=== PATIENT | female | born 1960 | race Caucasian/White ===

== ENCOUNTER → 2017-07-31 | Outpatient (CLI) | payer OTHER ==
[~2017-07-31] VITALS: Ht 172.7 cm; Wt 55.0 kg
[~2017-07-31] MED LIST: BENZOCAINE 20% ORAL SPR 60 ML CAN OROPHARYNG ONE; CALC1TAB12 PO; REST30CA PO; no current meds
[2017-07-31 07:45] VITALS: BP 128/64; PULSE 52; RESP 20; TEMP 98; O2SAT 100
== END ==
LOC: HSDC 07:13
PROVIDERS: ATTEND Internal Medicine Gastroenterology
DX: K44.9 Diaphragmatic hernia without obstruction or gangrene (principal); K21.9 Gastro-esophageal reflux disease without esophagitis
CPT/HCPCS: 91010

== ENCOUNTER 2017-08-09 15:37 | Emergency (ER) | payer OTHER ==
[~2017-08-09] VITALS: Ht 172.7 cm; Wt 75.0 kg
[~2017-08-09 15:37] MED LIST changes: -BENZOCAINE 20% ORAL SPR 60 ML CAN OROPHARYNG ONE
[2017-08-09] MEDS ORDERED: IOHEXOL 180 MG/ML 20 ML VIAL (for RAD DIAG) IVCONTRAST ONE (15:38)
[2017-08-09 15:43] VITALS: BP 120/69; PULSE 63; RESP 18; TEMP 98; O2SAT 100
[2017-08-09] MEDS ORDERED: SODIUM CHLORIDE 0.9% FLUSH 10 ML FLUSH IV FLUSH PRN (16:00)
[2017-08-09] MEDS ORDERED: SODIUM CHLOR 0.9% 1000 ML INJ 1,000 ML IV ONE (16:15)
[2017-08-09] MEDS ORDERED: ONDANSETRON HCL 4 MG/2 ML VIAL IV ONE (16:15)
[2017-08-09] MEDS ORDERED: MORPHINE SULFATE 4 MG/ML INJ IV PUSH ONE (16:15)
[2017-08-09 16:29] LABS: AUTOMATED NEUTROPHIL # 10.5 TH/MM3 (1.8-7.7); BASOPHIL % 0.2 % (0.0-2.0); HEMATOCRIT 43.8 % (35.0-46.0); HEMOGLOBIN 14.9 GM/DL (11.6-15.3); LYMPHOCYTE # 0.7 TH/MM3 (1.0-4.8); MEAN CORPUSCULAR HEMOGLOBIN 29.9 PG (27.0-34.0); MEAN PLATELET VOLUME 10.1 FL (7.0-11.0); MONO % 3.4 % (0.0-8.0); MONOCYTE # 0.4 TH/MM3 (0-0.9); NEUT % 90.4 % (16.0-70.0); PLATELET COUNT 208 TH/MM3 (150-450); RED BLOOD COUNT 4.98 MIL/MM3 (4.00-5.30); RED CELL DISTRIBUTION WIDTH 13.6 % (11.6-17.2); WHITE BLOOD COUNT 11.6 TH/MM3 (4.0-11.0)
[2017-08-09 16:39] LABS: ALBUMIN 3.8 GM/DL (3.4-5.0); ALT (GPT) 15 U/L (10-53); AST (GOT) 20 U/L (15-37); BICARBONATE 23.4 MEQ/L (21.0-32.0); BLOOD UREA NITROGEN 20 MG/DL (7-18); CALCIUM 9.1 MG/DL (8.5-10.1); CHLORIDE 108 MEQ/L (98-107); CREATININE 0.94 MG/DL (0.50-1.00); GLOMERULAR FILTRATION RATE 61 ML/MIN (>89); GLUCOSE,RANDOM 149 MG/DL (74-106); SODIUM (NA) 141 MEQ/L (136-145)
[2017-08-09 16:40] LABS: ALKALINE PHOSPHATASE 84 U/L (45-117); TOTAL BILIRUBIN ADULT 0.8 MG/DL (0.2-1.0); TOTAL PROTEIN 6.9 GM/DL (6.4-8.2)
--- NOTE | 2017-08-09 17:12 | PD ---
HPI Chief Complaint: Abdominal Pain Time Seen by Provider: 15:57 Travel History International Travel<30 days: No Contact w/Intl Traveler<30days: No Traveled to known affect area: No History of Present Illness HPI Is a 57-year-old woman presents emerged from complaining of lower abdominal pain. States she was feeling well until today when she woke up she started progressively worsening abdominal pain, worse in the lower abdomen. One episode of vomiting. Bowel movement this morning it was a little bit loose. No other vomiting or diarrhea. Pain is gotten progressively worse throughout the day and was excruciating when she got to the emergency department. Only past surgical history of C-sections. She is followed for bad hiatal hernia and reflux symptoms. She has had manometry and other extensive evaluations and it sounds like they are planning on doing some kind of procedure to put a metal ring around the esophageal sphincter to help with the symptoms. She otherwise has been feeling well and healthy prior to this. History Past Medical History Narrative Medical GERD Hiatal hernia Social History Alcohol Use: No Tobacco Use: Yes (e-sig) Allergies-Medications (Allergen,Severity, Reaction): Coded Allergies: No Known Allergies (Unverified Allergy, Unknown, 08/09/17) Reported Meds & Prescriptions Reported Meds & Active Scripts Active Reported Calcium 500 +D (Calcium Carbonate-Cholecalciferol) 500-400 Mg-Unit Tab 1 Tab PO TID Restoril (Temazepam) 30 Mg Cap 30 Mg PO HS [no current meds] Review of Systems Except as stated in HPI: all other systems reviewed are Neg Physical Exam Narrative GENERAL: 57-year-old woman, appears uncomfortable, knees bent, very still. SKIN: Focused skin assessment warm/dry. HEAD: Atraumatic. Normocephalic. EYES: Pupils equal and round. No scleral icterus. No injection or drainage. ENT: No nasal bleeding or discharge. Mucous membranes pink and moist. NECK: Trachea midline. No JVD. CARDIOVASCULAR: Regular rate and rhythm. No murmur appreciated. RESPIRATORY: No accessory muscle use. Clear to auscultation. Breath sounds equal bilaterally. GASTROINTESTINAL: Abdomen is firm and tense, with a lot of voluntary guarding. Possibly early peritonitis. MUSCULOSKELETAL: No obvious deformities. Decreased muscle bulk. NEUROLOGICAL: Awake and alert. No obvious cranial nerve deficits. Motor grossly within normal limits. Normal speech. PSYCHIATRIC: Appropriate mood and affect; insight and judgment normal. Data Data Last Documented VS Vital Signs Date Time Temp Pulse Resp B/P (MAP) Pulse Ox O2 Delivery O2 Flow Rate FiO2 08/09/17 15:43 98.0 63 18 120/69 (86) 100 Orders Orders Complete Blood Count With Diff (08/09/17 15:57) Comprehensive Metabolic Panel (08/09/17 15:57) Lipase (08/09/17 15:57) Urinalysis - C+S If Indicated (08/09/17 15:57) Iv Access Insert/Monitor (08/09/17 15:57) NPO (08/09/17 15:57) Sodium Chloride 0.9% Flush (Ns Flush) (08/09/17 16:00) Sodium Chlor 0.9% 1000 Ml Inj (Ns 1000 M (08/09/17 16:15) Ondansetron Inj (Zofran Inj) (08/09/17 16:15) Morphine Inj (Morphine Inj) (08/09/17 16:15) Ct Abd/Pel W Iv Contrast(Rout) (08/09/17 ) Labs Laboratory Tests Test 08/09/17 16:10 White Blood Count 11.6 TH/MM3 Red Blood Count 4.98 MIL/MM3 Hemoglobin 14.9 GM/DL Hematocrit 43.8 % Mean Corpuscular Volume 88.0 FL Mean Corpuscular Hemoglobin 29.9 PG Mean Corpuscular Hemoglobin Concent 34.0 % Red Cell Distribution Width 13.6 % Platelet Count 208 TH/MM3 Mean Platelet Volume 10.1 FL Neutrophils (%) (Auto) 90.4 % Lymphocytes (%) (Auto) 6.0 % Monocytes (%) (Auto) 3.4 % Eosinophils (%) (Auto) 0.0 % Basophils (%) (Auto) 0.2 % Neutrophils # (Auto) 10.5 TH/MM3 Lymphocytes # (Auto) 0.7 TH/MM3 Monocytes # (Auto) 0.4 TH/MM3 Eosinophils # (Auto) 0.0 TH/MM3 Basophils # (Auto) 0.0 TH/MM3 CBC Comment DIFF FINAL Differential Comment Blood Urea Nitrogen 20 MG/DL Creatinine 0.94 MG/DL Random Glucose 149 MG/DL Total Protein 6.9 GM/DL Albumin 3.8 GM/DL Calcium Level 9.1 MG/DL Alkaline Phosphatase 84 U/L Aspartate Amino Transf (AST/SGOT) 20 U/L Alanine Aminotransferase (ALT/SGPT) 15 U/L Total Bilirubin 0.8 MG/DL Sodium Level 141 MEQ/L Potassium Level 4.0 MEQ/L Chloride Level 108 MEQ/L Carbon Dioxide Level 23.4 MEQ/L Anion Gap 10 MEQ/L Estimat Glomerular Filtration Rate 61 ML/MIN Lipase 219 U/L MDM Medical Decision Making Medical Screen Exam Complete: Yes Emergency Medical Condition: Yes Differential Diagnosis Ruptured viscus, internal hernia, gastritis, pancreatitis, obstruction, other Narrative Course Medical decision making Is a 57-year-old woman presents to the emergency department complaining of severe abdominal pain. Very uncomfortable initially. Somewhat concerning abdominal exam. Much improved after 1 dose of morphine. More comfortable. Will check labs, CT imaging, reassess. Patient was signed out to Dr. Carpenter to follow-up with the results of CT imaging and reassess. Vasu Persaud MD Aug 09, 2017 17:12
--- NOTE | 2017-08-09 17:52 | PD ---
Data Data Last Documented VS Vital Signs Date Time Temp Pulse Resp B/P (MAP) Pulse Ox O2 Delivery O2 Flow Rate FiO2 08/09/17 15:43 98.0 63 18 120/69 (86) 100 Orders Orders Complete Blood Count With Diff (08/09/17 15:57) Comprehensive Metabolic Panel (08/09/17 15:57) Lipase (08/09/17 15:57) Urinalysis - C+S If Indicated (08/09/17 15:57) Iv Access Insert/Monitor (08/09/17 15:57) NPO (08/09/17 15:57) Sodium Chloride 0.9% Flush (Ns Flush) (08/09/17 16:00) Sodium Chlor 0.9% 1000 Ml Inj (Ns 1000 M (08/09/17 16:15) Ondansetron Inj (Zofran Inj) (08/09/17 16:15) Morphine Inj (Morphine Inj) (08/09/17 16:15) Ct Abd/Pel W Iv Contrast(Rout) (08/09/17 ) Iohexol 180 Inj (Omnipaque 180 Inj) (08/09/17 15:38) Ed Discharge Order (08/09/17 19:01) Labs Laboratory Tests Test 08/09/17 16:10 08/09/17 17:30 White Blood Count 11.6 TH/MM3 Red Blood Count 4.98 MIL/MM3 Hemoglobin 14.9 GM/DL Hematocrit 43.8 % Mean Corpuscular Volume 88.0 FL Mean Corpuscular Hemoglobin 29.9 PG Mean Corpuscular Hemoglobin Concent 34.0 % Red Cell Distribution Width 13.6 % Platelet Count 208 TH/MM3 Mean Platelet Volume 10.1 FL Neutrophils (%) (Auto) 90.4 % Lymphocytes (%) (Auto) 6.0 % Monocytes (%) (Auto) 3.4 % Eosinophils (%) (Auto) 0.0 % Basophils (%) (Auto) 0.2 % Neutrophils # (Auto) 10.5 TH/MM3 Lymphocytes # (Auto) 0.7 TH/MM3 Monocytes # (Auto) 0.4 TH/MM3 Eosinophils # (Auto) 0.0 TH/MM3 Basophils # (Auto) 0.0 TH/MM3 CBC Comment DIFF FINAL Differential Comment Blood Urea Nitrogen 20 MG/DL Creatinine 0.94 MG/DL Random Glucose 149 MG/DL Total Protein 6.9 GM/DL Albumin 3.8 GM/DL Calcium Level 9.1 MG/DL Alkaline Phosphatase 84 U/L Aspartate Amino Transf (AST/SGOT) 20 U/L Alanine Aminotransferase (ALT/SGPT) 15 U/L Total Bilirubin 0.8 MG/DL Sodium Level 141 MEQ/L Potassium Level 4.0 MEQ/L Chloride Level 108 MEQ/L Carbon Dioxide Level 23.4 MEQ/L Anion Gap 10 MEQ/L Estimat Glomerular Filtration Rate 61 ML/MIN Lipase 219 U/L Urine Color YELLOW Urine Turbidity CLEAR Urine pH 8.5 Urine Specific [place] 1.024 Urine Protein 100 mg/dL Urine Glucose (UA) NEG mg/dL Urine Ketones 10 mg/dL Urine Occult Blood NEG Urine Nitrite NEG Urine Bilirubin NEG Urine Urobilinogen LESS THAN 2.0 MG/DL Urine Leukocyte Esterase NEG Urine RBC LESS THAN 1 /hpf Urine WBC 1 /hpf Urine Squamous Epithelial Cells 1 /hpf Urine Mucus FEW /lpf Microscopic Urinalysis Comment CULT NOT INDICATED MDM Supervised Visit with BAILEY: No Narrative Course Patient CARE assume from Dr. Persaud @ [id number]. I was asked to follow-up the CAT scan recess the patient disposition her appropriately. Patient's abdomen is minimally tender for me she is just been medicated with morphine. I do not appreciate any peritoneal signs. Her labs do show minimally elevated white blood cell count. CAT scan completely negative according to radiology read Last 24 hours Impressions Abdomen/Pelvis CT 08/09/17 0000 Signed Impressions: Service Date/Time: Wednesday, August 09, 2017 17:37 - CONCLUSION: Normal examination. The appendix originates from the posterior wall of the cecum and extends directly posteriorly. Is not obviously inflamed or thick walled but is fluid-filled. Correlate clinically. The rest of study is unremarkable Vasu Miller MD The patient on reassessment has benign abdomen. I reviewed her images and I think I see a little bit of duodenal wall thickening consistent with a duodenitis. I think it is reasonable to cover her for this. She is feeling much better, states the pain was severe before but is significantly resolved. Interestingly she has a history of hiatal hernia but I do not even see a hiatal hernia on her CAT scan. At this time I think the patient is stable for discharge to follow-up with her surgeon Dr. Cross and she will do so on Saturday. Discussed with her at length return to ED criteria. She is stable for discharge Diagnosis Primary Impression: Epigastric abdominal pain Med/Other Pt SpecificInfo: Prescription(s) given Scripts Metronidazole (Flagyl) 500 Mg Tab 500 MG PO BID for Infection for 7 Days, #14 TAB 0 Refills Prov: Sadiq Carpenter MD 08/09/17 Ciprofloxacin (Cipro) 500 Mg Tab 500 MG PO BID for Infection for 7 Days, #14 TAB 0 Refills Prov: Sadiq Carpenter MD 08/09/17 Ondansetron (Zofran) 4 Mg Tab 4 MG PO Q6HR Y for NAUSEA OR VOMITING, #20 TAB 0 Refills Prov: Sadiq Carpenter MD 08/09/17 Dicyclomine (Bentyl) 10 Mg Cap 10 MG PO TID Y for ABDOMINAL CRAMPING, #20 CAP 0 Refills Prov: Sadiq Carpenter MD 08/09/17 Disposition: 01 DISCHARGE HOME Condition: Stable Sadiq Carpenter MD Aug 09, 2017 17:52
--- NOTE | 2017-08-09 17:54 | RADRPT ---
EXAM DATE/TIME: 08/09/2017 17:37 [facility] COMPARISON: No previous studies available for comparison. INDICATIONS : Lower abdominal pain with nausea and vomiting. IV CONTRAST: 97 cc Omnipaque 350 (iohexol) IV ORAL CONTRAST: No oral contrast ingested. RADIATION DOSE: 4.74 CTDIvol (mGy) MEDICAL HISTORY : Hernia, hiatal. Gastroesophageal reflux disease. SURGICAL HISTORY : section. ENCOUNTER: Initial ACUITY: 1 day PAIN SCALE: 10/10 LOCATION: Bilateral lower quadrant TECHNIQUE: Volumetric scanning of the abdomen and pelvis was performed. Using automated exposure control and ad justment of the mA and/or kV according to patient size, radiation dose was kept as low as reasonably achievable to obtain optimal diagnostic quality images. DICOM format image data is available electro nically for review and comparison. FINDINGS: LOWER LUNGS: The visualized lower lungs are clear. LIVER: Homogeneous density without lesion. There is no dilation of the biliary tree. No calcified gallston es. SPLEEN: Normal size without lesion. PANCREAS: Within normal limits. KIDNEYS: Normal in size and shape. There is no mass, stone or hydronephrosis. ADRENAL GLANDS: Within normal limits. VASCULAR: There is no aortic aneurysm. BOWEL/MESENTERY: The stomach, small bowel, and colon demonstrate no acute abnormality. There is no free intraperitone al air or fluid. I'm mildly concerned about the appendix. The appendix originates on image 59 and ext ends posterior from the cecum. It is fluid-filled but not grossly dilated or thick walled. No obviou s inflammation is identified on the coronal images (image 43) ABDOMINAL WALL: Within normal limits. RETROPERITONEUM: There is no lymphadenopathy. BLADDER: No wall thickening or mass. REPRODUCTIVE: Within normal limits. INGUINAL: There is no lymphadenopathy or hernia. MUSCULOSKELETAL: Within normal limits for patient age. CONCLUSION: Normal examination. The appendix originates from the posterior wall of the cecum and extends directly posteriorly. Is not obviously inflamed or thick walled but is fluid-filled. Correlate clinically. Th e rest of study is unremarkable Vasu Miller MD on August 09, 2017 at 17:50 Board Certified Radiologist. This report was verified electronically.
[2017-08-09 18:14] LABS: BILIRUBIN, URINE NEG (NEG); BLOOD, URINE NEG (NEG); GLUCOSE,URINE NEG (NEG); KETONE, URINE 10 mg/dL (NEG); MUCUS URINE FEW /lpf (OCC); NITRITE,URINE NEG (NEG); PH, URINE 8.5 (5.0-8.5); SQUAMOUS EPITHELIAL CELL URINE 1 /hpf (0-5); URINE COLOR YELLOW (YELLW/STRAW); URINE LEUKOCYTE ESTERASE NEG (NEG)
[2017-08-09] MEDS ORDERED: ZOFR4TAB PO (19:01)
[2017-08-09] MEDS ORDERED: METR-1 PO (19:01)
[2017-08-09] MEDS ORDERED: CIPR-9 PO (19:01)
[2017-08-09] MEDS ORDERED: DICY10 PO (19:01)
[2017-08-10] MEDS ORDERED: REGL10TA5 PO (15:52)
[2017-08-10] MEDS ORDERED: DICY20TA10 PO (15:52)
== END 2017-08-09 19:49 | disposition home or self-care (01) ==
LOC: NEPD 15:37
DX: R10.13 Epigastric pain (principal); Z72.0 Tobacco use
CPT/HCPCS: 74177; 80053; 81001; 83690; 85025; 96361; 96374; 96375; 99284; J2270; J2405; J7030; Q9965

== ENCOUNTER 2017-08-10 13:51 | Emergency (ER) | payer OTHER ==
[~2017-08-10] VITALS: Ht 172.7 cm; Wt 54.5 kg
[~2017-08-10 13:51] MED LIST changes: +CIPR-9 PO; +DICY10 PO; +METR-1 PO; +ZOFR4TAB PO
[2017-08-10 13:54] VITALS: BP 101/54; PULSE 80; RESP 16; TEMP 98; O2SAT 100
[2017-08-10] MEDS ORDERED: SODIUM CHLORIDE 0.9% FLUSH 10 ML FLUSH IV FLUSH PRN (14:15)
[2017-08-10] MEDS ORDERED: METOCLOPRAMIDE HCL 10 MG/2 ML VIAL IV PUSH ONE (14:15)
[2017-08-10 14:17] VITALS: RESP 17; O2SAT 98
--- NOTE | 2017-08-10 14:21 | PD ---
HPI Chief Complaint: Abdominal Pain Time Seen by Provider: 13:58 Travel History International Travel<30 days: No Contact w/Intl Traveler<30days: No Traveled to known affect area: No History of Present Illness HPI 57-year-old female presents emergency department for evaluation of abdominal pain that has been present since yesterday. Patient states that she was here in the emergency department and evaluated was given multiple medications however , says that her pain is persistent and she decided to come in for further evaluation. Says that she was prescribed antibiotics and dicyclomine however is only taken 1 dose this morning. Says she also took Aleve without relief. Says her pain is diffuse described as constant, pressure-like. Her pain is occasionally sharp that lasts for seconds to minutes before resolving spontaneously. No palliative or provocative factors. Pain is nonradiating. Moderate to severe. she denies nausea, vomiting, melena, hematochezia, fever, chills, chest pain, shortness of breath. Says her last bowel movement was yesterday and this was normal. Says that she has had multiple scans and outpatient which include a HIDA scan, abdominal CT yesterday, swallowing study, gastric emptying study. She has a history of gastric reflux, hiatal hernia, esophageal spasm, thyroid nodule and a "cyst in the uterus". She follows Dr. Cross on for an appointment. She has an appoint with her primary care physician on Saturday. PFSH Past Medical History Cancer: No Cardiovascular Problems: No Diabetes: No Diminished Hearing: No Endocrine: No Gastrointestinal Disorders: Yes GERD: Yes Genitourinary: No Hepatitis: No Hiatal Hernia: Yes Immune Disorder: No Musculoskeletal: No Neurologic: No Psychiatric: No Reproductive: No Respiratory: No Thyroid Disease: No Tetanus Vaccination: > 5 Years Influenza Vaccination: No ?: Not Menopausal: Yes : 2 Para: 1 Past Surgical History Abdominal Surgery: No Cardiac Surgery: No Section: Yes (x 1) Ear Surgery: No Endocrine Surgery: No Eye Surgery: No Genitourinary Surgery: No Gynecologic Surgery: No Joint Replacement: No Oral Surgery: No Pacemaker: No Thoracic Surgery: No Other Surgery: Yes Social History Alcohol Use: No Tobacco Use: Yes (e-sig) Substance Use: No Allergies-Medications (Allergen,Severity, Reaction): Coded Allergies: No Known Allergies (Verified Allergy, Unknown, 08/10/17) Reported Meds & Prescriptions Reported Meds & Active Scripts Active Reglan (Metoclopramide HCl) 10 Mg Tab 10 Mg PO QID Dicyclomine (Dicyclomine HCl) 20 Mg Tab 20 Mg PO TID 7 Days Flagyl (Metronidazole) 500 Mg Tab 500 Mg PO BID 7 Days Cipro (Ciprofloxacin HCl) 500 Mg Tab 500 Mg PO BID 7 Days Zofran (Ondansetron HCl) 4 Mg Tab 4 Mg PO Q6HR PRN Bentyl (Dicyclomine HCl) 10 Mg Cap 10 Mg PO TID PRN Reported Calcium 500 +D (Calcium Carbonate-Cholecalciferol) 500-400 Mg-Unit Tab 1 Tab PO TID Restoril (Temazepam) 30 Mg Cap 30 Mg PO HS Review of Systems Except as stated in HPI: all other systems reviewed are Neg Physical Exam Narrative GENERAL: Well-developed well-nourished no apparent distress SKIN: Focused skin assessment warm/dry. HEAD: Atraumatic. Normocephalic. EYES: Pupils equal and round. No scleral icterus. No injection or drainage. ENT: No nasal bleeding or discharge. Mucous membranes pink and moist. NECK: Trachea midline. No JVD. CARDIOVASCULAR: Regular rate and rhythm. No murmur appreciated. RESPIRATORY: No accessory muscle use. Clear to auscultation. Breath sounds equal bilaterally. GASTROINTESTINAL: Abdomen with voluntary guarding, no rebound tenderness, no masses or organomegaly. MUSCULOSKELETAL: No obvious deformities. No clubbing. No cyanosis. No edema. NEUROLOGICAL: Awake and alert. No obvious cranial nerve deficits. Motor grossly within normal limits. Normal speech. PSYCHIATRIC: Appropriate mood and affect; insight and judgment normal. Data Data Last Documented VS Vital Signs Date Time Temp Pulse Resp B/P (MAP) Pulse Ox O2 Delivery O2 Flow Rate FiO2 08/10/17 16:15 97.8 16 67 128/76 (93) 98 08/10/17 15:30 Room Air Orders Orders Complete Blood Count With Diff (08/10/17 14:14) Comprehensive Metabolic Panel (08/10/17 14:14) Lipase (08/10/17 14:14) Prothrombin Time / Inr (Pt) (08/10/17 14:14) Act Partial Throm Time (Ptt) (08/10/17 14:14) Urinalysis - C+S If Indicated (08/10/17 14:14) Iv Access Insert/Monitor (08/10/17 14:14) Ecg Monitoring (08/10/17 14:14) Oximetry (08/10/17 14:14) Sodium Chloride 0.9% Flush (Ns Flush) (08/10/17 14:15) Metoclopramide Inj (Reglan Inj) (08/10/17 14:15) Ed Discharge Order (08/10/17 15:56) Labs Laboratory Tests Test 08/10/17 14:15 White Blood Count 9.9 TH/MM3 Red Blood Count 4.08 MIL/MM3 Hemoglobin 12.5 GM/DL Hematocrit 36.6 % Mean Corpuscular Volume 89.8 FL Mean Corpuscular Hemoglobin 30.6 PG Mean Corpuscular Hemoglobin Concent 34.1 % Red Cell Distribution Width 13.3 % Platelet Count 156 TH/MM3 Mean Platelet Volume 10.4 FL Neutrophils (%) (Auto) 86.7 % Lymphocytes (%) (Auto) 10.1 % Monocytes (%) (Auto) 2.9 % Eosinophils (%) (Auto) 0.2 % Basophils (%) (Auto) 0.1 % Neutrophils # (Auto) 8.6 TH/MM3 Lymphocytes # (Auto) 1.0 TH/MM3 Monocytes # (Auto) 0.3 TH/MM3 Eosinophils # (Auto) 0.0 TH/MM3 Basophils # (Auto) 0.0 TH/MM3 CBC Comment DIFF FINAL Differential Comment Prothrombin Time 11.7 SEC Prothromb Time International Ratio 1.2 RATIO Activated Partial Thromboplast Time 26.9 SEC Urine Color YELLOW Urine Turbidity CLEAR Urine pH 5.5 Urine Specific [place] 1.020 Urine Protein TRACE mg/dL Urine Glucose (UA) NEG mg/dL Urine Ketones NEG mg/dL Urine Occult Blood NEG Urine Nitrite NEG Urine Bilirubin NEG Urine Urobilinogen 2.0 MG/DL Urine Leukocyte Esterase NEG Urine RBC LESS THAN 1 /hpf Urine WBC 2 /hpf Urine Squamous Epithelial Cells 2 /hpf Urine Hyaline Casts 2 /lpf Urine Mucus FEW /lpf Microscopic Urinalysis Comment CULT NOT INDICATED Blood Urea Nitrogen 19 MG/DL Creatinine 0.79 MG/DL Random Glucose 96 MG/DL Total Protein 6.2 GM/DL Albumin 3.4 GM/DL Calcium Level 8.3 MG/DL Alkaline Phosphatase 68 U/L Aspartate Amino Transf (AST/SGOT) 18 U/L Alanine Aminotransferase (ALT/SGPT) 13 U/L Total Bilirubin 0.8 MG/DL Sodium Level 144 MEQ/L Potassium Level 3.6 MEQ/L Chloride Level 109 MEQ/L Carbon Dioxide Level 27.6 MEQ/L Anion Gap 7 MEQ/L Estimat Glomerular Filtration Rate 75 ML/MIN Lipase 182 U/L MDM Medical Decision Making Medical Screen Exam Complete: Yes Emergency Medical Condition: Yes Differential Diagnosis Gastroparesis, idiopathic abdominal pain, gastritis, duodenitis Narrative Course 57-year-old female presents emergency department for evaluation of abdominal pain that has been present since yesterday. Patient states that she was here in the emergency department and evaluated was given multiple medications however , says that her pain is persistent and she decided to come in for further evaluation. Says that she was prescribed antibiotics and dicyclomine however is only taken 1 dose this morning. Says she also took Aleve without relief. Says her pain is diffuse described as constant, pressure-like. Her pain is occasionally sharp that lasts for seconds to minutes before resolving spontaneously. No palliative or provocative factors. Pain is nonradiating. Moderate to severe. she denies nausea, vomiting, melena, hematochezia, fever, chills, chest pain, shortness of breath. Says her last bowel movement was yesterday and this was normal. Says that she has had multiple scans and outpatient which include a HIDA scan, abdominal CT yesterday, swallowing study, gastric emptying study. She has a history of gastric reflux, hiatal hernia, esophageal spasm, thyroid nodule and a "cyst in the uterus". She follows Dr. Cross on for an appointment. She has an appoint with her primary care physician on Saturday. After review the EMR it appears the patient had morphine which significantly reduced her pain yesterday. It does not appear patient has had Reglan so will order this medication for administration while in the emergency department. Patient says that her pain has decreased. Patient will be discharged with Reglan 10 mg QID, increase dicyclomine to 20mg TID, continue abx. Patient says she will follow-up with her primary care physician as discussed. She is rather frustrated because she does not know the etiology of her abdominal pain however I told her that the specialist would best be able to determine etiology and treat her. I do not believe there is an emergent condition that requires treatment or further evaluation today. She will be discharged advised to follow-up as discussed. Advised to return for worsening or persistent symptoms. Physician Communication Physician Communication I spoke with her primary care physician, Dr. Delgado, he called the emergency department to discuss patient's condition. She says the patient has had gallbladder issues previously and she was concerned maybe this was a problem. In addition, she was concerned that maybe there was an appendicitis. Other history says that patient usually does not complain and therefore she is concerned that maybe there is a serious process. She reassures me that the patient has a follow-up on Saturday with her. In addition she has a follow-up with her gastrointestinal physician on . Diagnosis Primary Impression: Abdominal pain Qualified Codes: R10.84 - Generalized abdominal pain Referrals: Charge Entry Clerk Primary Care Physician Additional Instructions: Follow-up the primary care physician and custody assistant as discussed. You may increase her dicyclomine to 20 mg 3 times a day. You also have been given a prescription for this medication. Start Reglan as prescribed. Continue the antibiotics were given yesterday. Scripts Metoclopramide (Reglan) 10 Mg Tab 10 MG PO QID for Pain Management, #28 TAB 0 Refills Prov: Miguel Angel Tejada MD 08/10/17 Dicyclomine (Dicyclomine) 20 Mg Tab 20 MG PO TID for Bowel Management for 7 Days, #21 TAB 0 Refills Prov: Miguel Angel Tejada MD 08/10/17 Disposition: 01 DISCHARGE HOME Condition: Stable Freya Yun Aug 10, 2017 14:21
[2017-08-10 14:35] LABS: AUTOMATED NEUTROPHIL # 8.6 TH/MM3 (1.8-7.7); BASOPHIL % 0.1 % (0.0-2.0); EOSINOPHIL % 0.2 % (0.0-4.0); HEMATOCRIT 36.6 % (35.0-46.0); HEMOGLOBIN 12.5 GM/DL (11.6-15.3); LYMPH % 10.1 % (9.0-44.0); MEAN CELL VOLUME 89.8 FL (80.0-100.0); MEAN CORPUSCULAR HEMOGLOBIN 30.6 PG (27.0-34.0); MEAN CORPUSCULAR HGB CONC 34.1 % (32.0-36.0); MEAN PLATELET VOLUME 10.4 FL (7.0-11.0); MONO % 2.9 % (0.0-8.0); MONOCYTE # 0.3 TH/MM3 (0-0.9); NEUT % 86.7 % (16.0-70.0); PLATELET COUNT 156 TH/MM3 (150-450); RED BLOOD COUNT 4.08 MIL/MM3 (4.00-5.30); RED CELL DISTRIBUTION WIDTH 13.3 % (11.6-17.2); WHITE BLOOD COUNT 9.9 TH/MM3 (4.0-11.0)
[2017-08-10 14:36] LABS: BILIRUBIN, URINE NEG (NEG); BLOOD, URINE NEG (NEG); GLUCOSE,URINE NEG (NEG); HYALINE CAST, URINE 2 /lpf (RARE); KETONE, URINE NEG (NEG); MUCUS URINE FEW /lpf (OCC); NITRITE,URINE NEG (NEG); PH, URINE 5.5 (5.0-8.5); SQUAMOUS EPITHELIAL CELL URINE 2 /hpf (0-5); URINE COLOR YELLOW (YELLW/STRAW); URINE LEUKOCYTE ESTERASE NEG (NEG)
[2017-08-10 14:47] LABS: INTERNATIONAL NORMALIZED RATIO 1.2 RATIO; PROTHROMBIN TIME - PATIENT 11.7 SEC (9.8-11.6)
[2017-08-10 15:04] LABS: ALBUMIN 3.4 GM/DL (3.4-5.0); ALT (GPT) 13 U/L (10-53); AST (GOT) 18 U/L (15-37); BICARBONATE 27.6 MEQ/L (21.0-32.0); BLOOD UREA NITROGEN 19 MG/DL (7-18); CALCIUM 8.3 MG/DL (8.5-10.1); CHLORIDE 109 MEQ/L (98-107); CREATININE 0.79 MG/DL (0.50-1.00); GLOMERULAR FILTRATION RATE 75 ML/MIN (>89); GLUCOSE,RANDOM 96 MG/DL (74-106); SODIUM (NA) 144 MEQ/L (136-145)
[2017-08-10 15:06] LABS: ALKALINE PHOSPHATASE 68 U/L (45-117); TOTAL BILIRUBIN ADULT 0.8 MG/DL (0.2-1.0); TOTAL PROTEIN 6.2 GM/DL (6.4-8.2)
[2017-08-10 15:30] VITALS: BP 98/61; PULSE 63; RESP 17; TEMP 97.8; O2SAT 99
[2017-08-10] MEDS ORDERED: REGL10TA5 PO (15:52)
[2017-08-10] MEDS ORDERED: DICY20TA10 PO (15:52)
[2017-08-10 16:15] VITALS: BP 128/76; TEMP 97.8
== END 2017-08-10 16:15 | disposition home or self-care (01) ==
LOC: NEPC 13:51
DX: R10.84 Generalized abdominal pain (principal)
CPT/HCPCS: 80053; 81001; 83690; 85025; 85610; 85730; 96374; 99284; J2765

== ENCOUNTER 2017-08-16 13:16 | Day surgery (SDC) | payer OTHER ==
[~2017-08-16] VITALS: Ht 172.7 cm; Wt 55.0 kg
[~2017-08-16 13:16] MED LIST changes: +DICY20TA10 PO; +REGL10TA5 PO; -no current meds
[2017-08-16] MEDS ORDERED: ePHEDrine/NS 25 MG/5 ML SYRINGE IV ONE (13:17)
[2017-08-16] MEDS ORDERED: GLYCOPYRROLATE 1 MG/5 ML SYRINGE IV PUSH ONE (13:17)
[2017-08-16] MEDS ORDERED: LIDOCAINE HCL 1% PF 5 ML SYRINGE OTHER ONE (13:17)
[2017-08-16] MEDS ORDERED: NEOSTIGMINE 5 MG/5 ML SYRINGE IV PUSH ONE (13:17)
[2017-08-16] MEDS ORDERED: SUCCINYLCHOLINE CHLORIDE 100 MG/5 ML SYRINGE IV PUSH ONE (13:17)
[2017-08-16] MEDS ORDERED: ROCURONIUM INJ 50 MG/5 ML SYRINGE IV PUSH ONE (13:17)
[2017-08-16] MEDS ORDERED: DEXAMETHASONE SOD PHOS 4 MG/ML VIAL IV ONE (13:17)
[2017-08-16] MEDS ORDERED: PROPOFOL 200 MG/20 ML AMP IV ONE (13:17)
[2017-08-16] MEDS ORDERED: ONDANSETRON HCL 4 MG/2 ML VIAL IV ONE (13:17)
[2017-08-16] MEDS ORDERED: METOPROLOL TARTRATE 25 MG TAB PO PRN (14:00)
[2017-08-16] MEDS ORDERED: SODIUM CHLORID 0.9% 500 ML IV PRN (14:00)
[2017-08-16] MEDS ORDERED: PIPERACIL-TAZO 3.375 GM PREMIX 50 ML IV ONE (14:00)
[2017-08-16] MEDS ORDERED: INSULIN HUMAN REGULAR 1,000 UNITS/10 ML VIAL SQ PRN (14:00)
[2017-08-16] MEDS ORDERED: POVIDONE IODINE 5% (ANTISEPSIS KIT) 4 APPLICATIONS EACH NARE PRN (14:00)
[2017-08-16] MEDS ORDERED: CHLORHEXIDINE GLUCONATE 2 % 1 PACK (2 CLOTHS) TOPICAL PRN (14:00)
[2017-08-16] MEDS ORDERED: LACTATED RINGER'S 1000 ML IV PRN (14:00)
[2017-08-16] MEDS ORDERED: fentaNYL CITRATE 250 MCG/5 ML AMP ONE (14:06)
[2017-08-16] MEDS ORDERED: BUPIVACAINE/EPINEPHRINE 0.5% PF 10 ML VIAL ONE (14:14)
[2017-08-16] MEDS ORDERED: MIDAZOLAM HCL 2 MG/2 ML VIAL ONE (14:21)
[2017-08-16] MEDS ORDERED: APREPITANT 40 MG CAP ONE (14:34)
[2017-08-16] MEDS ORDERED: FAMOTIDINE 20 MG/2 ML VIAL ONE (14:34)
[2017-08-16] MEDS ORDERED: DO NOT ADM ANY ANTICOAGULANT DRUGS PRN (16:38)
[2017-08-16] MEDS ORDERED: *ONDANSETRON 4 MG VIAL PERIprocedural Use ONLY ONE (16:44)
[2017-08-16] MEDS ORDERED: KETOROLAC TROMETHAMINE 30 MG/ML (IVP) VIAL ONE (16:57)
--- NOTE | 2017-08-16 17:03 | PD.OP ---
cc: Anshul Soto MD Operative Report Date of Surgery: August 16, 2017 Preoperative Diagnosis: Acute appendicitis Postoperative Diagnosis: Acute appendicitis Procedure: Laparoscopic appendectomy Anesthesia: General endotracheal Surgeon: Anshul Soto Rubber Flap Tuber Machine Operator(s): None Operation and Findings: Operative findings: The patient was found to have an elongated, dilated, partially gangrenous appendix without any purulence surrounding it or within the lumen of the appendix. There was moderate to severe inflammation around the appendix which was densely adhered to the right pelvic sidewall with the tip of it well in the pelvis posterior to the fallopian tube. There is a loop of small intestine which was densely adherent to the anterior portion of the appendix at the pelvic brim. Operative procedure: The patient was brought to the operating room after satisfactory general endotracheal anesthesia is obtained, the abdomen was prepped and draped in the usual sterile fashion. 0.5% Marcaine with epinephrine was used to infiltrate the skin for local anesthesia. A transverse incision was made below the umbilicus and a 5 mm trocar was inserted into the peritoneal cavity under direct visualization. The abdomen was then distended to 15 mmHg using carbon dioxide. The camera was reinserted and visceral injury inspected for, with none being identified. Under direct visualization a 12 port was placed in the suprapubic midline and another 5 mm port in the left lateral aspect of the abdomen. The base of the appendix was identified with minimal difficulty and with the patient in steep Trendelenburg and rotated to the left side the bowel was gently moved away from the overlying position. The distal appendix was seen to be densely adhered to the pelvic sidewall as noted above and there was a loop of bowel. With that in mind it was decided to proceed with a retrograde dissection and accordingly a small window was created in the mesoappendix near the base of the appendix. As the appendix was being dissected free there was a small tear created which was then controlled with an Endo BLAIR 35 white load stapler distal to that defect and then a second staple line was made at the base of the appendix. A small appendiceal stump was then brought externally and sent for permanent pathology. The appendix was dissected free in retrograde fashion by taking down the mesoappendix with the harmonic scalpel as it was seen to go into the pelvis. Using blunt dissection and the hydrodissection, the small bowel loop which was seen to be densely adherent to the anterior surface of the appendix was dissected free without difficulty, although it was tedious. The appendix was then dissected free from its attachment to the pelvic sidewall and the mesoappendix was completely divided at that point under direct visualization with the harmonic scalpel. The appendix was placed within an Endo Catch bag and [facility]. The trocar was reinserted and the appendiceal stump was checked and the staple line found to be intact with no evident leak and no bleeding in the mesoappendix. The area of dissection and into the pelvis was copiously irrigated with saline and after he was suctioned free hemostasis was checked for again and found to be satisfactory. There is no evidence of remnant tissue in the pelvis and it was completely clean. There never had been any purulence noted and there is no purulence noted within the appendix itself. The carbon dioxide was vented as completely as possible the atmosphere. The ports were removed and the skin closed with interrupted 4-0 PDS subcuticular stitches. Steri-Strips were applied the patient then awakened and taken from the operating room, in satisfactory condition, having tolerated the procedure without problem. Estimated blood loss was less than 10 mL's. The instrument, sponge, needle counts were reported as being correct 2 at the end of the procedure. Anshul Soto MD August 16, 2017 17:03
[2017-08-16] MEDS ORDERED: KETO10 PO (17:19)
[2017-08-16] MEDS ORDERED: KETOROLAC TROMETHAMINE 30 MG/ML (IVP) VIAL IV PUSH ONE (17:45)
[2017-08-16] MEDS ORDERED: ONDANSETRON HCL 4 MG/2 ML VIAL IV PUSH PRN (17:45)
[2017-08-16] MEDS ORDERED: oxyCODONE/ACETAMINOPHEN 5 MG/325 MG TAB PO PRN ×2 (17:45)
[2017-08-16] MEDS ORDERED: SODIUM CHLORIDE 0.9% FLUSH 10 ML FLUSH IV FLUSH PRN (17:45)
[2017-08-16] MEDS ORDERED: MORPHINE SULFATE 4 MG/ML INJ IV PUSH PRN ×2 (17:45)
[2017-08-16 17:50] VITALS: BP 106/63; PULSE 47; RESP 16; TEMP 97.8; O2SAT 99
[2017-08-16] MEDS ORDERED: SODIUM CHLORIDE 0.9% FLUSH 10 ML FLUSH IV FLUSH SCH (21:00)
== END 2017-08-16 17:50 | disposition home or self-care (01) ==
LOC: HSDC 13:16
PROVIDERS: ATTEND Surgery
DX: K35.2 Acute appendicitis with generalized peritonitis (principal); E78.00 Pure hypercholesterolemia, unspecified
CPT/HCPCS: 00840; 44970; 88304; J1885; J2250; J2405; J2543; J3010; J7120; J8501; J0330; J1100; J2710